=== PATIENT | female | born 1980 | race Caucasian/White ===

== ENCOUNTER 2021-09-24 04:33 | Day surgery (SDC) | payer OTHER ==
[2021-09-22 12:27] VITALS: BMI 26.6
[2021-09-24 10:26] VITALS: TEMP 98.1
[2021-09-24 10:55] VITALS: PULSE 70
[2021-09-24 11:27] VITALS: BP 96/60
== END 2021-09-24 11:20 | disposition home or self-care (01) ==
LOC: JASU-ENDO 04:33
PROVIDERS: ATTEND Internal Medicine Gastroenterology
PROC: 0DB78ZX Excision of Stomach, Pylorus, Via Natural or Artificial Opening Endoscopic, Diagnostic (ICD-10-PCS; 2021-09-24)
PROC: 0DB68ZX Excision of Stomach, Via Natural or Artificial Opening Endoscopic, Diagnostic (ICD-10-PCS; 2021-09-24)
PROC: 0DB98ZX Excision of Duodenum, Via Natural or Artificial Opening Endoscopic, Diagnostic (ICD-10-PCS; principal; 2021-09-24 10:03)
DX: K29.50 Unspecified chronic gastritis without bleeding (principal)
CPT/HCPCS: 88305-TC; 88342-TC

== ENCOUNTER 2022-01-28 04:41 | Day surgery (SDC) | payer OTHER ==
[2022-01-27 16:04] VITALS: BMI 25.0
[2022-01-28 11:12] VITALS: BP 103/61; PULSE 72; RESP 18; TEMP 97.9
== END 2022-01-28 11:17 | disposition home or self-care (01) ==
LOC: JASU-ENDO 04:41
PROVIDERS: ATTEND Internal Medicine Gastroenterology
PROC: 0DBN8ZX Excision of Sigmoid Colon, Via Natural or Artificial Opening Endoscopic, Diagnostic (ICD-10-PCS; 2022-01-28)
PROC: 0DBP8ZX Excision of Rectum, Via Natural or Artificial Opening Endoscopic, Diagnostic (ICD-10-PCS; 2022-01-28)
PROC: 0DBB8ZX Excision of Ileum, Via Natural or Artificial Opening Endoscopic, Diagnostic (ICD-10-PCS; 2022-01-28)
PROC: 0DBH8ZX Excision of Cecum, Via Natural or Artificial Opening Endoscopic, Diagnostic (ICD-10-PCS; 2022-01-28)
PROC: 0DBK8ZX Excision of Ascending Colon, Via Natural or Artificial Opening Endoscopic, Diagnostic (ICD-10-PCS; principal; 2022-01-28 11:00)
DX: Z12.11 Encounter for screening for malignant neoplasm of colon (principal); K64.8 Other hemorrhoids; Z83.71 Family history of colonic polyps
CPT/HCPCS: 81025; 87045; 87046; 88305-TC

== ENCOUNTER 2022-05-25 08:05 | Day surgery (SDC) | payer OTHER ==
[2022-05-25] MEDS ORDERED: diphenhydrAMINE HCL 25 MG CAPSULE (FP) PO ONE (08:30)
[2022-05-25] MEDS ORDERED: METHYLPREDNISOLONE NA SUCC 100 MG in SODIUM CHLORIDE 50 ML IVPB ONE (08:30)
[2022-05-25] MEDS ORDERED: ACETAMINOPHEN 500 MG TABLET (FP) PO ONE (08:30)
[2022-05-25] MEDS ORDERED: RITUXIMAB-ABBS 1,000 MG in DEXTROSE 5%-WATER - 400 ML IVPB ONE (09:00)
[2022-05-25] MEDS ORDERED: FAMOTIDINE 20 MG/50 ML IVPB 20 MG/50 ML MG IVPB ONE (10:30)
[2022-05-25] MEDS ORDERED: SODIUM CHLORIDE 0.9% 500 ML INFUS.BAG IV ONE (10:30)
[2022-05-25] MEDS ORDERED: methylPREDNISolone NA SUCC 125 MG/2 ML VIAL IVPUSH ONE (10:30)
[2022-05-25 16:43] VITALS: RESP 18; TEMP 98.1
[2022-05-25 18:09] VITALS: BP 127/73; PULSE 85
== END 2022-05-25 18:13 | disposition home or self-care (01) ==
LOC: JONCCHEMO 08:05 → J7W 08:06 → JONCCHEMO 18:13
PROVIDERS: ATTEND Internal Medicine Rheumatology
PROC: 3E033GC Introduction of Other Therapeutic Substance into Peripheral Vein, Percutaneous Approach (ICD-10-PCS; principal; 2022-05-25)
DX: M06.00 Rheumatoid arthritis without rheumatoid factor, unspecified site (principal)
CPT/HCPCS: 96375; 96413; 96415; Q5115

== ENCOUNTER 2022-06-08 08:05 | Day surgery (SDC) | payer OTHER ==
[2022-06-08] MEDS ORDERED: ACETAMINOPHEN 500 MG TABLET (FP) PO ONE (08:30)
[2022-06-08] MEDS ORDERED: diphenhydrAMINE HCL 25 MG CAPSULE (FP) PO ONE (08:30)
[2022-06-08] MEDS ORDERED: METHYLPREDNISOLONE NA SUCC 100 MG in SODIUM CHLORIDE 50 ML IVPB ONE (08:30)
[2022-06-08] MEDS ORDERED: DIPHENHYDRAMINE 50 MG in SODIUM CHLORIDE 50 ML IVPB ONE (09:00)
[2022-06-08] MEDS ORDERED: RITUXIMAB-ABBS 1,000 MG in DEXTROSE 5%-WATER - 400 ML IVPB ONE (09:00)
[2022-06-08 14:14] VITALS: RESP 18
[2022-06-08 14:23] VITALS: BP 107/65; PULSE 90
[2022-06-08 14:27] VITALS: TEMP 98.6
== END 2022-06-08 14:27 | disposition home or self-care (01) ==
LOC: JCHEMO 08:05 → J7W 08:08 → JCHEMO 14:27
PROVIDERS: ATTEND Internal Medicine Rheumatology
DX: M06.00 Rheumatoid arthritis without rheumatoid factor, unspecified site (principal)
CPT/HCPCS: 96375; 96413; 96415; Q5115

== ENCOUNTER 2022-11-22 07:48 | Day surgery (SDC) | payer OTHER ==
[2022-11-22] MEDS ORDERED: METHYLPREDNISOLONE NA SUCC 100 MG in SODIUM CHLORIDE 50 ML IVPB ONE (08:45)
[2022-11-22] MEDS ORDERED: ACETAMINOPHEN 500 MG TABLET (FP) PO ONE (08:45)
[2022-11-22] MEDS ORDERED: diphenhydrAMINE HCL 25 MG CAPSULE (FP) PO ONE (08:45)
[2022-11-22] MEDS ORDERED: RITUXIMAB-ABBS 1,000 MG in DEXTROSE 5%-WATER - 400 ML IVPB ONE (09:30)
[2022-11-22 16:26] VITALS: RESP 18
[2022-11-22 16:35] VITALS: BP 127/61; PULSE 71; TEMP 98.1
== END 2022-11-22 14:40 | disposition home or self-care (01) ==
LOC: J7W 07:48 → JCHEMO 07:48
PROVIDERS: ATTEND Internal Medicine Rheumatology
DX: M06.00 Rheumatoid arthritis without rheumatoid factor, unspecified site (principal)
CPT/HCPCS: 96375; 96413; 96415; Q5115

== ENCOUNTER 2022-12-06 07:56 | Day surgery (SDC) | payer OTHER ==
[2022-12-06] MEDS ORDERED: ACETAMINOPHEN 500 MG TABLET (FP) PO ONE (10:00)
[2022-12-06] MEDS ORDERED: diphenhydrAMINE HCL 25 MG CAPSULE (FP) PO ONE (10:00)
[2022-12-06] MEDS ORDERED: METHYLPREDNISOLONE NA SUCC 100 MG in SODIUM CHLORIDE 50 ML IVPB ONE (10:00)
[2022-12-06] MEDS ORDERED: RITUXIMAB-ABBS 1,000 MG in DEXTROSE 5%-WATER - 400 ML IVPB ONE (10:30)
[2022-12-06 17:07] VITALS: RESP 18; TEMP 98.4
[2022-12-06 17:11] VITALS: BP 132/59; PULSE 64
== END 2022-12-06 14:30 | disposition home or self-care (01) ==
LOC: JCHEMO 07:56 → J7W 08:01 → JCHEMO 14:30
PROVIDERS: ATTEND Internal Medicine Rheumatology
DX: M06.00 Rheumatoid arthritis without rheumatoid factor, unspecified site (principal)
CPT/HCPCS: 96375; 96413; 96415; Q5115

== ENCOUNTER 2023-06-08 07:47 | Day surgery (SDC) | payer OTHER ==
[2023-06-08] MEDS: METHYLPREDNISOLONE NA SUCC 100 MG in SODIUM CHLORIDE 50 ML IVPB ONE (09:58)
[2023-06-08] MEDS: diphenhydrAMINE HCL 25 MG CAPSULE (FP) PO ONE (09:58)
[2023-06-08] MEDS: ACETAMINOPHEN 500 MG TABLET (FP) PO ONE (09:58)
[2023-06-08 14:57] VITALS: TEMP 98.3
[2023-06-08 16:14] VITALS: BP 139/61; PULSE 79; RESP 16
== END 2023-06-08 16:20 | disposition home or self-care (01) ==
LOC: JCHEMO 07:47 → J7W 07:49 → JCHEMO 16:20
PROVIDERS: ATTEND Internal Medicine Rheumatology
DX: M06.00 Rheumatoid arthritis without rheumatoid factor, unspecified site (principal)
CPT/HCPCS: 96367; 96413; 96415; Q5115

== ENCOUNTER 2023-07-20 08:08 | Day surgery (SDC) | payer OTHER ==
[2023-07-20] MEDS: DIPHENHYDRAMINE 50 MG in SODIUM CHLORIDE 50 ML IVPB ONE (09:18)
[2023-07-20] MEDS: ACETAMINOPHEN 500 MG TABLET (FP) PO ONE (09:19)
[2023-07-20] MEDS: METHYLPREDNISOLONE NA SUCC 100 MG in SODIUM CHLORIDE 50 ML IVPB ONE (09:39)
[2023-07-20 15:30] VITALS: RESP 20
[2023-07-20 15:59] VITALS: BP 105/77; PULSE 71; TEMP 98.3
== END 2023-07-20 14:42 | disposition home or self-care (01) ==
LOC: JCHEMO 08:08 → J7W 08:09 → JCHEMO 14:42
PROVIDERS: ATTEND Internal Medicine Rheumatology
DX: M06.00 Rheumatoid arthritis without rheumatoid factor, unspecified site (principal)
CPT/HCPCS: 96367; 96413; 96415; Q5115

== ENCOUNTER 2024-03-11 07:55 | Day surgery (SDC) | payer OTHER ==
[2024-03-11] MEDS ORDERED: diphenhydrAMINE HCL 25 MG CAPSULE (FP) PO ONE (08:30)
[2024-03-11] MEDS: WATER IVPB ONE (09:46)
[2024-03-11] MEDS: METHYLPREDNISOLONE NA SUCC IVPB ONE (09:46)
[2024-03-11] MEDS: DEXTROSE 5% IVPB ONE (09:46)
[2024-03-11] MEDS: ACETAMINOPHEN 500 MG TABLET (FP) PO ONE (09:47)
[2024-03-11] MEDS: DIPHENHYDRAMINE 50 MG in SODIUM CHLORIDE 50 ML IVPB ONE (09:51)
[2024-03-11] MEDS: RITUXIMAB 1,000 MG in DEXTROSE 5%-WATER - 400 ML IVPB ONE (10:35)
[2024-03-11 18:42] VITALS: RESP 16
[2024-03-11 18:56] VITALS: BP 134/79; PULSE 77; TEMP 98.1
== END 2024-03-11 16:00 | disposition home or self-care (01) ==
LOC: JCHEMO 07:55 → J7W 07:57 → JCHEMO 16:00
PROVIDERS: ATTEND Internal Medicine Rheumatology
PROC: 3E03305 Introduction of Other Antineoplastic into Peripheral Vein, Percutaneous Approach (ICD-10-PCS; principal; 2024-03-11)
PROC: 3E0333Z Introduction of Anti-inflammatory into Peripheral Vein, Percutaneous Approach (ICD-10-PCS; 2024-03-11)
DX: M06.00 Rheumatoid arthritis without rheumatoid factor, unspecified site (principal); K90.0 Celiac disease
CPT/HCPCS: 96365; 96413; 96415; J9312

== ENCOUNTER 2024-03-25 07:52 | Day surgery (SDC) | payer OTHER ==
[2024-03-25] MEDS: METHYLPREDNISOLONE NA SUCC 100 MG in SODIUM CHLORIDE 50 ML IVPB ONE (09:34)
[2024-03-25] MEDS: ACETAMINOPHEN 500 MG TABLET (FP) PO ONE (09:35)
[2024-03-25] MEDS: DIPHENHYDRAMINE 50 MG in SODIUM CHLORIDE 50 ML IVPB ONE (10:18)
[2024-03-25] MEDS: RITUXIMAB 1,000 MG in DEXTROSE 5%-WATER - 400 ML IVPB ONE (10:40)
[2024-03-25 14:11] VITALS: RESP 20; TEMP 98.4
[2024-03-25 14:16] VITALS: BP 102/61; PULSE 79
== END 2024-03-25 14:20 | disposition home or self-care (01) ==
LOC: JCHEMO 07:52
PROVIDERS: ATTEND Internal Medicine Rheumatology
DX: M06.9 Rheumatoid arthritis, unspecified (principal)
CPT/HCPCS: 96375; 96413; 96415; J9312